=== PATIENT | female | born 1980 ===

== ENCOUNTER 2022-12-18 11:40 | Emergency (ER) | payer MEDICAID, OTHER ==
[~2022-12-18] VITALS: Ht 165.1 cm; Wt 73.0 kg
[2022-12-18 11:56] VITALS: BP 146/91; PULSE 88; RESP 16; O2SAT 97
== END 2022-12-18 13:01 | disposition left against medical advice (07) ==
LOC: ER 11:40 → EDBD 11:40 → ER 13:01
DX: R55 Syncope and collapse (principal); Z53.21 Procedure and treatment not carried out due to patient leaving prior to being seen by health care provider